=== PATIENT | female | born 1935 | race Caucasian/White ===

== ENCOUNTER 2020-09-08 12:47 | Day surgery (SDC) | payer MEDICARE, SELFPAY ==
[2020-09-08] VITALS (11 sets, daily range): BP systolic 82–189; BP diastolic 55–101; PULSE 60–81; RESP 17–20; O2SAT 90–99; BMI 20.5
--- NOTE | 2020-09-08 | IR_ITS ---
APPROVED REPORT Patient Location: Outpatient Console Manager: GAURAV Eckert RT (R) PROCEDURES 1. Pocket formation for Permanent Pacemaker Placement. 2. Placement of an atrial sensing and pacing coil into the right atrial appendage. 3. Placement of a ventricular sensing and pacing coil in the right ventricular apex. 4. Permanent Pacemaker Placement. INDICATION Symptomatic Bradycardia Informed consent was obtained prior to the procedure. COMPLICATIONS None Estimated Blood Loss: Less than 10 mls TECHNIQUE 1% Lidocaine with epinephrine used to anesthetized the left anterior aspect of the chest. Scalpel was used to make the initial cutaneous incision while electrocautery was used to dissect down tinto the fascia. The fascia was lifted off the pectoralis muscle and digitally manipulated creating a pocket for the pacemaker. The patient was then placed in Trendelenburg position and the subclavian vein was accessed twice via the Selinger technique, there are two wires in the vein. A 6 Spanish sheath was placed under fluoroscopic guidance into the subclavian vein over one of the wires while keeping the other wire in place within the subclavian vein. The dilator was removed from the sheath. Using fluoroscopic guidance, the ventricular lead was placed into the right ventricular apex, screwed and secured into place. Electronic interrogation proved acceptable thresholds and voltage within the lead. Using 3-0 silk, the ventricular lead was then secured into place. Lead was secured to the facia using the 3-0 silk. Following this, the sheath was pealed away. An additional 6 Spanish fresh sheath and dilator was placed over the existing wire. Using fluoroscopic guidance, the atrial lead was the placed into the right atrial appendage and screwed and secured in place. Electrical interrogation demonstrated acceptable thresholds and voltage number. The atrial lead was then secured into place using 3-0 silk. 1 gram of Ancef was used to flush the pocket. Following the pacemaker generator being secured to the fascia and in place, Monocryl was used to close the subcutaneous layers while laura were used to close the cutaneous layer. A pressure dressing was placed and the patient was transferred to the postop holding area in stable condition for postoperative care. INTERROGATION Generator Model number: [place] MRi DR IS-1 L311 Generator Serial number: [id number] Atrial lead model number: INGEVITY + IS-1 POSITIVE FIX 7840 Atrial lead serial number:[id number] P-wave: 3.0 mV Impedence: 454 OhmS Threshold: 0.6 V Right Ventricular lead model number: INGEVITY + IS=1 POSTIVE FIX 7841 Right Ventricular lead serial number: [id number] R-wave: 5.6 V Impedence: 900 Ohms Threshold: 0.8 V Pacing Parameters: Mode: DDDR Base/Max Track: 70/120 ppm No diaphragmatic stimulation at 10 volts. IMPRESSION 1. Successful pocket formation for Permanent Pacemaker Placement. 2. Successful placement of an atrial sensing and pacing coil into the right atrial appendage. 3. Successful placement of a ventricular sensing and pacing coil in the right ventricular apex. 4. Successful permanent Pacemaker Placement. PLAN 1. Post op wound care, follow up office visit Electronically signed by : Laz Gregg, 09/09/2020 15:08:54
--- NOTE | 2020-09-08 15:37 | XR_ITS ---
PROCEDURE: XR CHEST PORTABLE CLINICAL HISTORY: Confirm pacemaker/AID placement COMPARISON: No exams were available for comparison FINDINGS: Bipolar pacemaker is present from left subclavian approach. Right atrial and right ventricular lead is present and appears in satisfactory position in the AP plane. No evidence of pneumothorax. Skin clips are present at the pacemaker insertion site. The heart size is normal. The lungs are clear without infiltrates, suspicious nodules, or pleural effusions. No acute bony abnormalities. IMPRESSION: Status post pacemaker insertion with good position of the leads and no evidence of pneumothorax Dictated by: Jaden Vincent MD 09/08/2020 16:08 Jaden Vincent MD in [facility] 09/08/2020 16:08
== END 2020-09-08 17:40 | disposition home or self-care (01) ==
PROVIDERS: PCP Internal Medicine; Visit Provider Internal Medicine
DX: I45.5 Other specified heart block (principal); I49.5 Sick sinus syndrome; I48.91 Unspecified atrial fibrillation; R55 Syncope and collapse; I11.9 Hypertensive heart disease without heart failure; R53.1 Weakness; Z79.899 Other long term (current) drug therapy; E03.9 Hypothyroidism, unspecified
CPT/HCPCS: 33208; 71045; C1785; C1898; J2704